=== PATIENT | male | born 2000 | race Caucasian/White ===

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

== ENCOUNTER 2022-08-17 16:06 | Emergency (ER) | payer OTHER ==
[~2022-08-17] VITALS: Wt 77.1 kg
[~2022-08-17 16:06] MED LIST changes: +KENALOG 0.025%15 GM T
[2022-08-17] MEDS ORDERED: Ondansetron4 MG PO (16:28)
[2022-08-17] MEDS ORDERED: PROTONIX40 MG PO (16:28)
== END 2022-08-17 16:33 | disposition home or self-care (01) ==
LOC: ED 16:06
DX: K29.70 Gastritis, unspecified, without bleeding (principal); K29.80 Duodenitis without bleeding

== ENCOUNTER 2023-07-07 21:49 | Emergency (ER) | payer BC ==
[~2023-07-07] VITALS: Ht 162.5 cm; Wt 68.0 kg
[~2023-07-07 21:49] MED LIST changes: +Ondansetron4 MG PO; +PROTONIX40 MG PO
== END 2023-07-07 22:51 | disposition short-term general hospital (02) ==
LOC: ED 21:49
DX: S01.511A Laceration without foreign body of lip, initial encounter (principal); W54.0XXA Bitten by dog, initial encounter; Y93.89 Activity, other specified; Y92.89 Other specified places as the place of occurrence of the external cause; Y99.8 Other external cause status